=== PATIENT | female | born 1960 | race Caucasian/White ===

== ENCOUNTER 2018-08-18 12:09 | Emergency (ER) | payer OTHER ==
--- NOTE | 2018-08-18 12:34 | Emergency Department Record ---
History of Present Illness - General Chief complaint: Extremity Problem Stated complaint: RIGHT KNEE/LEG PAIN Time Seen by Provider: 08/18/18 12:14 Source: Patient Mode of Arrival: Ambulatory Limitations: No limitations - History of Present Illness Initial comments: The patient is here due to R knee pain for 4 days. She may have twisted it while gardening 4 days ago but there was no fall or direct trauma. The patient has had chronic R knee pain for a year since an injury a year ago. The pain is mainly behind the knee and increases with walking and bending the knee. There is no thigh pain but there is mild calf and ankle pain. The patient denies any leg swelling, CP, SOB, RENEE, or any hx of blood clots or a clotting disorder. MD Complaint: Extremity pain Onset/Timin -: Days(s) Location: Right, Knee Radiation: Proximal Severity scale (1-10): 9 Quality: Aching - Related Data Home Medications Medication Instructions Recorded Confirmed Last Taken Cetirizine HCl [Zyrtec] 10 mg PO DAILY 08/18/18 08/18/18 1 Day Ago ~08/17/18 Meloxicam 15 mg PO DAILY 08/18/18 08/18/18 1 Day Ago ~08/17/18 Previous Rx's Medication Instructions Recorded Tramadol HCl 50 mg PO Q8H #15 tab 08/18/18 Allergies Allergy/AdvReac Type Severity Reaction Status Date / Time prednisone Allergy Unknown HIVES Verified 08/18/18 12:22 Sulfa (Sulfonamide Allergy Unknown HIVES Verified 08/18/18 12:22 Antibiotics) Travel Screening - Travel/Exposure Within Last 30 Days Have you traveled within the last 30 days?: No - Travel/Exposure Within Last Year Have you traveled outside the [place] in the last year?: No - Additonal Travel Details Have you been exposed to anyone with a communicable illness?: No - Travel Symptoms Symptom Screening: None Review of Systems Constitutional: Denies: Chills, Fever Eyes: Denies: Eye discharge ENT: Denies: Congestion Respiratory: Denies: Cough, Dyspnea Past Medical History - SOCIAL HISTORY Smoking Status: Never smoker Alcohol Use: Rare Drug Use: None - RESPIRATORY Hx Respiratory Disorders: Yes Hx Asthma: Yes (reactive airway) - CARDIOVASCULAR Hx Cardio Disorders: Yes Hx Hypertension: Yes - NEURO Hx Neuro Disorders: No - GI Hx GI Disorders: Yes Hx Reflux: Yes - Hx Genitourinary Disorders: No - ENDOCRINE Hx Endocrine Disorders: No Hx Diabetes: No Hx Thyroid Disease: No - MUSCULOSKELETAL Hx Musculoskeletal Disorders: Yes Hx Arthritis: Yes - PSYCH Hx Psych Problems: Yes Hx Anxiety: Yes Hx Depression: Yes - HEMATOLOGY/ONCOLOGY Hx Hematology/Oncology Disorders: No Hx Cancer: No Family Medical History Any Significant Family History?: Yes Physical Exam - General General Appearance: Alert, Oriented x3, Cooperative, No acute distress - Head Head exam: Atraumatic, Normocephalic - Eye Eye exam: Normal appearance, PERRL - Neck Neck exam: Normal inspection, Full ROM. negative: Tenderness - Respiratory Respiratory exam: Normal lung sounds bilaterally. negative: Respiratory distress - Cardiovascular Cardiovascular Exam: Regular rate, Normal rhythm, Normal heart sounds - Extremities Extremities exam: Normal inspection, Normal capillary refill, Tenderness (There is posterior > anterior tenderness to palpation. There is no joint effusion, erythema or warmth.), Other (The R leg and foot are NVI with normal pulses distally.). negative: Calf tenderness (Neg thigh tenderness also. ), Full ROM (There is decreased ROM to the R knee 2nd pain.), Joint swelling, Pedal edema - Neurological Neurological exam: Alert, Normal gait. negative: Abnormal gait, Motor sensory deficit - Psychiatric Psychiatric exam: negative: Anxious - Skin Skin exam: negative: Rash Course Vital Signs 08/18/18 12:11 Temperature 99.0 F Pulse Rate 76 Respiratory 16 Rate Blood Pressure 124/68 Pulse Ox 100 - Reevaluation(s) Reevaluation #1: I did explain the xray results to the patient. I also did recommend a leg doppler due to not having a definite diagnosis as to the cause of the pain. The patient does not believe she has a blood clot and is refusing the transfer. I did explain that by NOT having the test if she did have a DVT it could break off and go into her lungs which could lead to an RI, stroke, disability and . The patient understands and accepts the risks. She would like to see her PCP for recheck and to obtain a knee MRI. 08/18/18 13:24 Medical Decision Making - Data Complexity MDM Data: X-Ray Ordered and/or Reviewed - Radiology Data Radiology results: Report reviewed (R knee: Mild arthritis, neg effusion or any acute change.) Disposition Disposition: Discharge Clinical Impression: Knee pain, right Qualifiers: Chronicity: acute Qualified Code(s): M25.561 - Pain in right knee Disposition: Home, Self-Care Condition: (2) Stable Instructions: Knee Pain (ED) Additional Instructions: Please ice and elevate the R knee when possible and use the immobilizer and crutches for 5 days. Please take the Tramadol as directed for pain and please see your family doctor for recheck this week and to have an MRI ordered on the R knee. Prescriptions: Tramadol HCl 50 mg PO Q8H #15 tab Forms: Patient Portal Access Time of Disposition: 13:33 Quality - Quality Measures Quality Measures: N/A - Blood Pressure Screening View Details: Yes Does Patient Have Any of the Following: No Blood Pressure Classification: Pre-Hypertensive BP Reading Systolic Measurement: 124 Diastolic Measurement: 68 Screening for High Blood Pressure: < Pre-Hypertensive BP, F/U Documented > [G8950] Pre-Hypertensive Follow-up Interventions: Referral to alternative/primary care provider.
== END 2018-08-18 13:51 | disposition home or self-care (01) ==
LOC: ER 12:09
DX: M25.561 Pain in right knee (principal); I10 Essential (primary) hypertension
CPT/HCPCS: 99283

== ENCOUNTER 2018-09-12 06:27 | Day surgery (SDC) | payer OTHER ==
[~2018-09-12 06:27] MED LIST: ACETAMINOPHEN 1,000 MG/100 ML BTL IVPB ONE
[2018-09-12] MEDS ORDERED: LIDOCAINE 2% MDV (20MG/ML) 20ML VIAL IV ONE (06:28)
[2018-09-12] MEDS ORDERED: ONDANSETRON HCL IV 4 MG/2 ML VIAL IVP ONE (06:28)
[2018-09-12] MEDS ORDERED: PROPOFOL 10 MG/ML VIAL IV ONE (06:28)
[2018-09-12] MEDS ORDERED: FENTANYL PF 100MCG/2ML VIAL IV ONE (06:28)
[2018-09-12] MEDS ORDERED: SEVOFLURANE 250 ML INH ONE (06:28)
[2018-09-12] MEDS ORDERED: KETOROLAC 30 MG/ML VIAL IVP ONE (06:28)
[2018-09-12] MEDS ORDERED: MIDAZOLAM HCL 2MG/2ML VIAL IV ONE (06:28)
[2018-09-12] MEDS ORDERED: RINGERS SOLUTION,LACTATED 1,000 ML IV ONE (07:00)
[2018-09-12] MEDS ORDERED: BUPIVACAINE 0.25% W/EPI MPF 30ML VIAL SQ ONE (08:39)
[2018-09-12] MEDS ORDERED: HYDROCODONE/APAP 5/325MG TABLET PO ONE (09:28)
--- NOTE | 2018-09-13 13:32 | Operative Note ---
DATE OF SURGERY: 09/12/2018 PREOPERATIVE DIAGNOSIS: Torn medial meniscus of the right knee. POSTOPERATIVE DIAGNOSES: 1. Torn medial and lateral meniscus right knee. 2. Chondromalacia medial femoral condyle right knee. OPERATION: 1. Arthroscopic partial medial and lateral meniscectomy right knee. 2. Arthroscopic chondroplasty medial femoral condyle right knee. SURGEON: Lyle Das DO REFERRING PHYSICIAN: Dimitri Dyson MD, FACP ANESTHESIA: General. PROCEDURE: This 57-year-old female was taken to the operating room and placed in the supine position on the operating room table where general anesthesia was induced. The right lower extremity was elevated, it was exsanguinated and the tourniquet inflated to 300 mmHg. Arthroscopic knee-enriquez applied. The right knee prepped with Hibiclens and draped in the usual sterile fashion. An inferolateral portal was established with a 4 mm arthroscope and initial evaluation of the joint demonstrated normal appearance of the suprapatellar pouch, but minimal scuffing of the articular cartilage of the patella was present, but it was not grossly unstable after probing and not further disturbed. The trochlea was examined and found to be normal. The medial compartment was entered and a complex tear of the medial meniscus was present. There was a tear of the root of the posterior horn of the medial meniscus as well as the posterior horn and there was a significant defect in the superior aspect of the body, but this was not a full-thickness defect, but was quite deep, measuring approximately 50% of the depth of the meniscus. Utilizing the basket forceps, we resected unstable fragments of the medial meniscus and smoothed and contoured the meniscus, probed it to confirm its stability. The medial femoral condyle demonstrated grade 2 changes with multiple fragments of unstable articular cartilage which was smoothed and contoured with the rotating shaver. The intra-condylar notch was examined and found to be normal. The lateral compartment was entered and tears of the body and anterior horn of the lateral meniscus were present utilizing the rotating shaver, basket forceps we resected unstable fragments of the lateral meniscus and smoothed and contoured the meniscus, reprobed it and confirmed that it was stable. The articular cartilage of the lateral compartment did not reveal any abnormality. The joint was then copiously irrigated and suctioned. All areas were re-examined. No additional findings were present. The joint was suctioned, the instruments were removed. The portals were infiltrated with 0.25% Marcaine with epinephrine. Sterile dressings were applied. Tourniquet and knee-enriquez released. The patient taken to the recovery room in satisfactory condition. GROSS PATHOLOGY: This patient demonstrated a complex tear of the posterior horn of the medial meniscus, as well as a tear of the body as described above, grade 2 chondromalacia of the medial femoral condyle, very superficial scuffing of the median ridge of the patella, but we did not further disturb that. A tear of the body of the anterior horn of the lateral meniscus that was present as described. MTDD
== END 2018-09-12 09:53 | disposition home or self-care (01) ==
LOC: SUR 06:27
PROVIDERS: ATTEND Orthopaedic Surgery
DX: S83.231A Complex tear of medial meniscus, current injury, right knee, initial encounter (principal); S83.281A Other tear of lateral meniscus, current injury, right knee, initial encounter; M94.261 Chondromalacia, right knee; I10 Essential (primary) hypertension; E78.00 Pure hypercholesterolemia, unspecified; K21.9 Gastro-esophageal reflux disease without esophagitis; J45.909 Unspecified asthma, uncomplicated
CPT/HCPCS: 84132; J1885; J2405; J7120